=== PATIENT | male | born 1960 | race Caucasian/White ===

== ENCOUNTER 2019-03-21 20:07 | Emergency (ER) | payer BC, SELFPAY ==
[2019-03-21] VITALS (14 sets, daily range): BP systolic 105–151; BP diastolic 40–81; PULSE 54–77; RESP 15–21; TEMP 37.6; O2SAT 93–97
--- NOTE | 2019-03-21 20:19 | ED.GENADUL_ITS ---
Discharge Plan Disposition Patient Disposition: HOME Condition: Good Discharge Details Chief Complaint: Trauma Clinical Impression: Injury of left shoulder, Fall from ladder Primary Care Provider: DARYN FRANCO ED Provider: Eddy Taylor Home Meds and New Rx's Prescriptions: New ibuprofen 600 mg tablet 600 mg PO Q8H PRN (Reason: pain) Qty: 20 RF: 0 Discharge Instructions Additional Instructions: X-rays are negative. There is no evidence of fracture or dislocation. Please wear the sling until you follow-up with orthopedics as there may be potential for rotator cuff injury. You may alternate acetaminophen with ibuprofen every 4 hours. She should use ice on and off over the weekend. Return to ED for any new pain, difficulty breathing, numbness, weakness, other problems. Referrals: Luis Daniel eLe MD [ [facility] STAFF PHYSICIAN] - Discharge Data Discharge Date/Time-TO BE ENTERED AT DEPARTURE: 03/21/19 22:01 Medical Decision Making Patient here status post fall off ladder. Appears to be isolated injury to the shoulder. Spine is cleared clinically. Denies loss of consciousness. Has no headache or neurologic symptoms. Initially declined pain medication. X-ray of chest and left shoulder ordered. Prior to going to x-ray patient did request pain medication. Toradol 60 mg IM given. X-rays were obtained. Per my read and preliminary radiology read chest x-ray and left shoulder x-ray negative for any acute traumatic injury. Patient still neurovascularly intact but unable to range left shoulder. Need to consider rotator cuff injury. Will place in sling and have him use ice and nonsteroidal medications over the weekend. Refer to orthopedics for follow-up. Return to ED for any new pain, shortness of breath, numbness, weakness. HPI General Mode of arrival: ambulatory . Date/Time Provider Initiated Documentation: 03/21/19 20:19 . Limitations to Documentation: no limitations . Information obtained by: patient and RN notes reviewed . HPI Narrative: Patient presents to ED with left shoulder pain status post falling off a ladder. Patient fell about 6 feet or so. He did strike his head but took most of the impact on his shoulder. He denies loss of consciousness. He denies headache. He denies neck or back pain. He has no chest pain or shortness of breath. He is ambulatory and actually drove himself here after the fall. He is unable to range his shoulder on the left without significant pain. He arrives with the arm tucked in against his body. He is right handed. Related Data Home Medications Medication Instructions Recorded Confirmed ibuprofen 600 mg PO Q8H PRN #20 tab 03/21/19 Previous Rx's Medication Instructions Recorded ibuprofen 600 mg PO Q8H PRN #20 tab 03/21/19 Allergies Allergy/AdvReac Type Severity Reaction Status Date / Time No Known Allergies Allergy Verified 03/21/19 20:29 General Stated Complaint: Trauma DIANDRA: 2 Review of Systems Review of Systems As documented in HPI otherwise negative as below. Const: no fever, chills, weakness Resp: no cough, SOB, pleuritic pain CV: no CP, diaphoresis, edema, syncope GI: no abdominal pain, nausea, vomiting, diarrhea Neuro: no headache, numbness, focal weakness, confusion PFSH Surgical History S/P ORIF (open reduction internal fixation) fracture (Acute) Social History Smoking/Tobacco Use Status: Never Alcohol Intake: never Drug use: Never Substance use type: does not use Do you feel safe at home: Yes Do you feel safe in your relationship?: Yes Exam Narrative Exam Narrative: Vitals: Afebrile. Elevated blood pressure otherwise normal vitals and pulse oximetry. Const: WDWN male in NAD. HEENT: NC/AT. Normal facial exam. Eyes: Normal conjunctiva and sclera. PERRL and EOMI. Neck: Supple. Trachea midline. No c-spine tenderness. Lungs: Normal respiratory effort. Lungs are clear. No chest wall tenderness. Cor: RRR without murmur/gallop. Good radial pulses. GI: Soft. NT/ND. No guarding or rebound. Back: No spinal tenderness. Neuro: A+O x 3. CN grossly in tact. Good strength and no focal deficit. Ext: No C/C/E. No deformity. Tenderness left shoulder/deltoid area. No ROM of shoulder due to pain. Extremities otherwise normal. LUE is NVI distally. Skin: Warm and dry without lacerations/abrasions.
[2019-03-21] MEDS: Ketorolac 60 MG/2 ML VIAL IM (20:31)
--- NOTE | 2019-03-21 20:50 | DI.RAD_ITS ---
SYMPTOM/DIAGNOSIS: TRAUMA, FELL OFF LADDER, PAIN PA AND LATERAL CHEST: The heart is normal in size. The lungs are clear. The mediastinal structures and pleura appear intact. CONCLUSION: Normal chest. LEFT SHOULDER: Five views were obtained. There is no evidence of an acute fracture or dislocation.
--- NOTE | 2019-03-21 21:36 | DI.VRAD_ITS ---
EXAM: XR Chest, 2 Views EXAM DATE/TIME: 03/21/2019 8:53 PM CLINICAL HISTORY: 58 years old, male; Injury or trauma; Fall; Initial encounter; Blunt trauma (contusions or hematomas) TECHNIQUE: Imaging protocol: XR of the chest, 2 views. COMPARISON: No relevant prior studies available. FINDINGS: Lungs: Unremarkable. No consolidation. Pleural space: Unremarkable. No pleural effusion. No pneumothorax. Heart/Mediastinum: Heart size upper limits of normal. Vasculature: Moderate aortic ectasia. Bones/joints: Unremarkable. IMPRESSION: No evidence for acute abnormality in the chest. COMMENT: Preliminary interpretation is based on receipt of 2 image(s). A final report will be issued subsequently. Dictated and Authenticated by: Dara Corona MD. Ordering:JULIET Kam MD
--- NOTE | 2019-03-21 21:38 | DI.VRAD_ITS ---
EXAM: XR Left Shoulder EXAM DATE/TIME: 03/21/2019 8:59 PM CLINICAL HISTORY: 58 years old, male; Injury or trauma; Fall; Initial encounter; Blunt trauma (contusions or hematomas; Shoulder; Left TECHNIQUE: Imaging protocol: XR Left shoulder. Views: 2 or more views. COMPARISON: No relevant prior studies available. FINDINGS: Bones/joints: Normal. Soft tissues: Normal. IMPRESSION: Unremarkable exam. COMMENT: Preliminary interpretation is based on receipt of 5 image(s). A final report will be issued subsequently. Dictated and Authenticated by: Dara Corona MD. Ordering:JULIET Kam MD
== END 2019-03-21 22:01 | disposition home or self-care (01) ==
PROVIDERS: Emergency Provider Emergency Medicine; PCP Internal Medicine
DX: S49.92XA Unspecified injury of left shoulder and upper arm, initial encounter (principal); W11.XXXA Fall on and from ladder, initial encounter
CPT/HCPCS: 96372; 99284; 71046; 73030; J1885; L3650